=== PATIENT | female | born 1970 ===

== ENCOUNTER → 2018-11-21 21:25 | Outpatient (ROUT) | payer OTHER, SELFPAY ==
[2018-11-21 22:27] LABS: HEMOLYSIS < 15 (0-50); Iron 189 ug/dL (37-170)
[2018-11-21 22:28] LABS: Alanine Aminotransferase 8 IU/L (9-52); Albumin 4.1 g/dL (3.5-5.0); Albumin Globulin Ratio 1.6 (1.0-2.8); Alkaline Phosphatase 48 U/L (38-126); Aspartate Aminotransferase 19 IU/L (14-36); Bilirubin Total 0.6 mg/dL (0.2-1.3); Bilirubin Unconjugated 0.4 mg/dL (0.0-1.1); Globulin 2.6 g/dL (1.7-4.1); HEMOLYSIS < 15 (0-50); Total Protein 6.7 g/dL (6.3-8.2)
[2018-11-21 22:39] LABS: Percent Iron Saturation 63 % (15-50); Total Iron Binding Capacity 298 ug/dL (265-497); Transferrin 236 mg/dL (206-381)
== END ==
PROVIDERS: Visit Provider Family Medicine
DX: R79.0 Abnormal level of blood mineral (principal)
CPT/HCPCS: 36415; 80076; 82728; 83540; 83550